=== PATIENT | female | born 1980 | race Caucasian/White ===

== ENCOUNTER 2020-07-07 20:38 | Inpatient (IN) ==
[2020-07-07] MEDS ORDERED: Glycerin ADULT 2.4 gm SUPP PR PRN (21:06)
[2020-07-07] MEDS ORDERED: Witch Hazel PAD JAR TOPICAL PRN (21:06)
[2020-07-07] MEDS ORDERED: Dibucaine 1% OINT 28.35 GM TUBE PR PRN (21:06)
[2020-07-07] MEDS ORDERED: Lactated Ringers 1000 ml BAG 1,000 ML IV SCH (22:00)
[2020-07-08 06:19] LABS: ABS Lymphocytes 2.4 10^3/ul (1.0-4.8); ABS Neutrophils 8.6 10^3/ul (1.5-7.7); Eosinophil % 0.4 %; Hematocrit 34 % (35-47); Hemoglobin 11.5 g/dL (12.0-16.0); Lymphocyte % 20.3 %; Mean Corpuscular HGB Conc 34 g/dL (31-36); Mean Corpuscular Hemoglobin 30 pg (27-31); Mean Corpuscular Volume 89 fL (80-97); Mean Platelet Volume 8.4 fL (7.4-10.4); Platelet Count 164 10^3/uL (150-450); Red Blood Count 3.79 10^6 /uL (3.70-4.87); Red Cell Distribution Width 14 % (10-15)
[2020-07-08 17:07] LABS: Urine Benzodiazepine Screen None Detected (None Detect); Urine Cannabinoids Screen None Detected (None Detect); Urine Opiates Screen None Detected (None Detect)
[2020-07-09 07:41] VITALS: BP 110/65
== END 2020-07-09 17:32 | disposition home or self-care (01) | DRG 769 ==
LOC: MCHOBOUT 20:38 → MCHOB 20:39
PROVIDERS: ADMIT Midwife; ATTEND Midwife